=== PATIENT | female | born 1925 | race Caucasian/White ===

== ENCOUNTER 2016-10-19 12:45 | Observation (INO) | payer MEDICARE, OTHER ==
[~2016-10-19] VITALS: Ht 157.5 cm; Wt 78.6 kg
--- NOTE | 2016-10-19 12:50 | NUR ---
Patient admitted to room [address] Gutierrez's office. She complains of headache pain with pressure in her sinuses and cough since yesterday.
[2016-10-19] MEDS ORDERED: ONDANSETRON 2 MG/ML (Z0FRAN) 2 ML VIAL IV PRN (13:15)
[2016-10-19] MEDS ORDERED: NS FLUSH 3 ML PRN IV (13:30)
[2016-10-19] MEDS ORDERED: NS FLUSH 10 ML PRN IV (13:30)
[2016-10-19] MEDS ORDERED: NS IV 500 ML 500 ML IV SCH (13:35)
[2016-10-19 13:39] VITALS: BP 195/98
[2016-10-19 13:42] VITALS: BP 195/98
[2016-10-19] MEDS: ACETAMINOPHEN 325 MG TAB (TYLENOL) PO PRN ×2 (13:42→20:45)
[2016-10-19] MEDS ORDERED: FUROSEMIDE 40 MG (LASIX) TAB PO PRN (15:00)
--- NOTE | 2016-10-19 15:00 | NUR ---
MED REC COMPLETE--current med list obtained from patient report and list provided by patient's PCP (Dr. Gutierrez).
[2016-10-19] MEDS ORDERED: LORATADINE (CLARITIN) 10 MG TAB PO PRN (15:20)
--- NOTE | 2016-10-19 15:30 | NUR ---
Patient reports tylenol has helped her headache pain somewhat. She has been able to get up to the bathroom with steady gait.
[2016-10-19 15:36] VITALS: BP 190/95
[2016-10-19] MEDS: OSELTAMIVIR (TAMIFLU) 75 MG CAP PO SCH ×2 (16:26→20:45)
[2016-10-19] MEDS ORDERED: warFARin 2.5 MG (COUMADIN) TAB PO SCH (17:00)
[2016-10-19] MEDS: meTOprolol TARTRATE 25 MG (LOPRESSOR) TABLET PO SCH (17:36)
--- NOTE | 2016-10-19 18:29 | NUR ---
Able to eat a small portion of supper without complaint of nausea or vomiting. She remains afebrile with unlabored respirations and O2 sats. in the 's.
[2016-10-19 19:53] LABS: BILIRUBIN,URINE Negative (Negative); COLOR,URINE Yellow; GLUCOSE, URINE (UA) Negative (Negative); LEUKOCYTE ESTERASE ,URINE Negative (Negative); PH,URINE 8.5 (5.0 - 8.0); UROBILINOGEN,URINE 0.2 mg/dL (0.2-1.0)
[2016-10-19 19:54] LABS: AMORPHOUS SEDIMENT,UR 2+ /HPF; CLARITY,URINE Slightly Cloudy; RBC,URINE 0-2 /HPF; URINE CENTRIFUGED VOLUME <10mL Unspun
--- NOTE | 2016-10-19 20:00 | NUR ---
Patient resting in bed. Is alert and oriented. Is anxious at times. States neck is sore. Would like another pillow. Tried three different pillows and patient finally satisfied. States has neck pain. New pillow makes her feel some better. Appears confused at times. Call light within reach.
--- NOTE | 2016-10-19 20:45 | NUR ---
Tylenol 650 mg administered Po from neck pain. Repositioned in bed. Call light within reach.
[2016-10-19] MEDS ORDERED: SIMvastatin 20 MG (ZOCOR) TAB PO SCH (21:00)
--- NOTE | 2016-10-20 | NUR ---
Ibuprofen 600 mg administered for neck pain. Ambulated to bathroom with stand by assist. Steady when up. Returned to bed. Call light within reach.
[2016-10-20] MEDS: IBUPROFEN 400 MG (MOTRIN) TABLET PO PRN ×2 (00:10→10:07)
[2016-10-20 00:16] VITALS: BP 130/72
[2016-10-20 06:04] LABS: BASOPHILS % (AUTO) 0 % (0-2); EOSINOPHILS % (AUTO) 0 % (0-4); LYMPHOCYTES # (AUTO) 0.7 X10^3; MEAN CORPUSCULAR HGB CONC 35.2 g/dL (31.0-37.0); MEAN CORPUSCULAR VOLUME 91 FL (80-100); MEAN PLATELET VOLUME 11.2 FL (6.0-9.5); MONOCYTES # (AUTO) 0.6 X10^3; MONOCYTES % (AUTO) 11 % (3-11); NEUTROPHILS # (AUTO) 3.8 X10^3; NEUTROPHILS % (AUTO) 75 % (51-67); PLATELET COUNT 127 10^3uL (150-450); WHITE BLOOD COUNT 5.09 10^3uL (4.0-11.0)
[2016-10-20 06:05] LABS: MEAN CORPUSCULAR HEMOGLOBIN 32.2 PG (26.0-34.0)
[2016-10-20 06:25] LABS: ANION GAP 12.8 MEQ/L (3-15)
--- NOTE | 2016-10-20 06:39 | NUR ---
Rested well tonight. Stand by assist to the bathroom. Has intermittent cough, expectorates light yellow tinged sputum. Call light within reach.
[2016-10-20] MEDS ORDERED: LEVOTHYROXINE 25 MCG PO SCH (07:00)
[2016-10-20 07:35] VITALS: BP 136/92
[2016-10-20] MEDS ORDERED: ESTRADIOL 1 MG (ESTRACE) TABLET PO SCH (09:00)
[2016-10-20] MEDS ORDERED: NS FLUSH 3 ML DAILY IV SCH (09:00)
--- NOTE | 2016-10-20 09:00 | NUR ---
NUTRITION ASSESSMENT Level 1 Patient: Fanta Zuniga Age/Sex: 89/F Date Screened: 10-20-16 Weight: 172.9#/78.6 kg Height: 62 inches Primary Diagnosis: weakness, influenza A Diet Order: cardiac Relevant labs: glucose 121, sodium 131 Food allergies: N Nutrition Assessment Criteria Age over 80: 4 points Body Mass Index (BMI) under 19: N Admission Screening Indicates Risk? N Moderate/High Risk Diagnosis: N TPN or PPN: N NPO or clear liquid diet: N Serum Glucose <70 or >180: N Hgb A1c >6.7: N/A Total: 4 points Risk Screen: __ Patient at low nutritional risk based on available data; reevaluate in 5-7 days _X_ Patient at moderate nutritional risk based on available data; reevaluate in 3-5 days __ Patient at high nutritional risk; complete Nutrition Assessment within 48 hours of admission. Comments: Normally healthy elderly female who lives alone; weakness is associated with this admission and influenza A. No GI concerns, no weight changes. Eating 25-50% so far without n/v/d. Will reassess as documented above.
[2016-10-20] MEDS: meTOprolol TARTRATE 25 MG (LOPRESSOR) TABLET PO SCH (09:22)
[2016-10-20] MEDS: OSELTAMIVIR (TAMIFLU) 75 MG CAP PO SCH (09:22)
[2016-10-20] MEDS: ALBUTEROL 0.083% NEB SOLUTION 2.5 MG/3 ML VIAL INH SCH ×2 (10:20→15:00)
--- NOTE | 2016-10-20 10:50 | NUR ---
Patient refused chest x-ray this a.m.
--- NOTE | 2016-10-20 11:08 | NUR ---
Ambulated the mayers with the patient. O2 sat. was 90-93% on room air during ambulation.
--- NOTE | 2016-10-20 13:30 | NUR ---
Patient has remained on room air without shortness of breath.
--- NOTE | 2016-10-20 14:10 | NUR ---
Gave the patient discharge instructions and printed script for Tamiflu. Educated patient that cough may persist and to keep up fluids after discharge. Patient demonstrated verbal understanding of the instructions.
--- NOTE | 2016-10-20 14:20 | NUR ---
Patient dismissed ambulatory accompanied by a [employer].
--- NOTE | 2016-10-20 16:11 | NUR ---
Pt. discharged by Tawny Londono after oximetry checked on room air, 93%. Pt. did have yellow sputum this AM before nebulizer tx., BS were coarse before cough and tx..
[2016-10-20] MEDS ORDERED: warFARin 5 MG (COUMADIN) TAB PO SCH (17:00)
== END 2016-10-20 15:40 | disposition home or self-care (01) ==
LOC: MED/SURG 12:45
PROVIDERS: ADMIT Family Medicine; ATTEND Family Medicine
DX: J10.1 Influenza due to other identified influenza virus with other respiratory manifestations (principal); J44.9 Chronic obstructive pulmonary disease, unspecified; I48.91 Unspecified atrial fibrillation; E78.5 Hyperlipidemia, unspecified; I10 Essential (primary) hypertension; E03.9 Hypothyroidism, unspecified; G89.29 Other chronic pain; M54.5 Low back pain; R53.1 Weakness; B97.89 Other viral agents as the cause of diseases classified elsewhere; Z79.01 Long term (current) use of anticoagulants
CPT/HCPCS: 36415; 71020; 80048; 81003; 81015; 85025; 87040; 87486; 87581; 87633; 87798; 94640; 96361; 96374; A9270; G0378; J2405; J7040; J7613; 99218

== ENCOUNTER → 2016-10-19 | Outpatient (REF) | payer MEDICARE, OTHER ==
[2016-10-19 11:59] LABS: BASOPHILS % (AUTO) 1 % (0-2); EOSINOPHILS # (AUTO) 0.1 10^3uL; EOSINOPHILS % (AUTO) 1 % (0-4); LYMPHOCYTES # (AUTO) 0.6 X10^3; MEAN CORPUSCULAR HGB CONC 34.7 g/dL (31.0-37.0); MEAN CORPUSCULAR VOLUME 92 FL (80-100); MEAN PLATELET VOLUME 10.8 FL (6.0-9.5); MONOCYTES # (AUTO) 0.7 X10^3; MONOCYTES % (AUTO) 12 % (3-11); NEUTROPHILS # (AUTO) 4.1 X10^3; NEUTROPHILS % (AUTO) 74 % (51-67); PLATELET COUNT 136 10^3uL (150-450)
[2016-10-19 12:08] LABS: MEAN CORPUSCULAR HEMOGLOBIN 31.9 PG (26.0-34.0)
[2016-10-19 12:12] LABS: ALBUMIN 3.9 g/dL (3.4-5.0); TOTAL PROTEIN 6.8 g/dL (6.4-8.5)
== END ==
LOC: LAB 10:16
PROVIDERS: ATTEND Internal Medicine
DX: Z51.81 Encounter for therapeutic drug level monitoring (principal); Z70.1 Counseling related to patient's sexual behavior and orientation; R53.1 Weakness; R05 Cough; R50.9 Fever, unspecified
CPT/HCPCS: 80053; 85025; 85610; 86140

== ENCOUNTER → 2016-11-17 | Outpatient (CLI) | payer MEDICARE, OTHER ==
[~2016-11-17] MED LIST: ALBU6.7H IH; CYAN10004 IM; DRON400T2 PO; ESTR1TAB27 PO; FEXO-45 PO; FRSM40T PO; LEVO25TA2 PO; LEVO50TA6 PO; METO25TA60 PO; OSLT75C PO; SIMV40TA2 PO; SIMV5TAB51 PO; WRF2.5T PO; WRF5T PO
--- NOTE | 2016-11-17 14:46 | Diagnostic Imaging Report ---
PROCEDURE: US Carotid Duplex Bilateral. TECHNIQUE: Multiple real-time grayscale images were obtained over the carotid arteries in various projections bilaterally. Additional duplex Doppler and color Doppler images were also obtained. INDICATION: Carotid stenosis and occlusion. COMPARISON: 07/29/2015. FINDINGS: Heterogeneous partly shadowing plaque mixed soft and hard involves the left greater than right common carotids, the bifurcations and extends into the proximal right ICA. The left ICA is widely patent post endarterectomy. The ICA/CCA percent ratio on the right is mildly elevated at 1.4, previously 2.7. Peak right internal carotid arterial systolic velocity is 115 cm/s today, previously 164 cm/s. Estimated stenosis is 50% or less on the right and is less pronounced than on prior. IMPRESSION: Improvements in stenosis of the right proximal internal carotid owing to mixed soft and hard plaque, decreased maximal velocities, and reduction in ICA/CCA percent ratio. No substantial turbulent blood flow. Widely patent left internal carotid post endarterectomy. Antegrade directional flow in the vertebrals bilaterally maintained. No adverse development. Dictated by: Dictated on workstation # [id number]
== END ==
LOC: RAD 10:51
PROVIDERS: ATTEND Internal Medicine
DX: I65.22 Occlusion and stenosis of left carotid artery (principal)
CPT/HCPCS: 93880